=== PATIENT | male | born 1980 | race Asian ===

== ENCOUNTER → 2024-04-11 08:53 | Outpatient (REF) | payer BC, SELFPAY | LOC: RAD 08:53 | PROVIDERS: ATTENDING PHYSICIAN Physician Assistant Surgical; FAMILY PHYSICIAN Physician Assistant Medical | DX: M25.512 Pain in left shoulder (principal) | CPT/HCPCS: 76882 ==

== ENCOUNTER 2024-10-30 18:27 | Emergency (ER) | payer BC, SELFPAY ==
[2024-10-30 18:44] VITALS: BP 154/99
--- NOTE | 2024-10-30 18:44 | ED.GENMED ---
ED Provider Triage
<Santi Lopez Jr., PA-C - Last Filed: 10/30/24 18:46>
-
Patient seen by provider in Triage?: Seen in Triage
Attestation: A medical screening examination has been initiated by a qualified medical provider. Based on the assessment performed at this time, it has been determined that an emergent medical condition may exist and the patient has been informed
that further medical evaluation and possible additional diagnostic testing may be needed.
HPI: 44 M coming in for 3 days of diarrhea. Multiple episodes per day since. No fevers/blood. Very minimal urinating at this point. Concerned for dehydration. Labs/saline ordered.
GENERAL: Alert , in no apparent distress
EYE: No visual abnormalities.
NECK: Trachea midline
ENT: No visible abnormalities.
LUNGS: No acute respiratory distress
NEUROLOGICAL: Alert and oriented
SKIN: Skin intact. No visible changes.
MUSCULOSKELETAL: Moving extremities normally
PSYCH: Normal and appropriate interaction.
This is a medical evaluation conducted in person to initiate diagnostic evaluation and provide initial therapeutics. Please see further documentation by the treating clinician.
History of Present Illness
<Santi Lopez Jr., PA-C - Last Filed: 10/30/24 18:46>
General
Chief Complaint: Abdominal Symptoms
Time Seen by Provider: 10/30/24 22:07
<SAGRA Dolan - Last Filed: 10/30/24 22:41>
General
Source: patient
Nursing documentation reviewed up to this point in time: agreed with
History of Present Illness
History of Present Illness:
Pt is a 44 yo M who presents to the ED with diarrhea since Tuesday. Pt states that he went to urgent care earlier today and they advised him to go to the ED. Pt states that on Tuesday he had a headache when driving to work, became nauseous and
then the diarrhea began. Pt states that the diarrhea has been constant since it began. Pt reports that on Tuesday he had about 10-12 episodes of diarrhea. He states that diarrhea is watery. Pt reports that when he tries to eat or drink anything, he
has watery diarrhea soon afterwards. Pt reports that he is hungry and has an appetite to eat. Pt states that he tried Tums on Tuesday without relief. Pt also reports having generalized crampy abdominal pain that is present before having an episode
of diarrhea. Pt states that he has been having less amounts of urinary output since the diarrhea began. Pt denies vomiting, fever, chills, weakness, bloating, sick contacts. Pt denies recent travel or antibiotic use.
Past History
<Santi Lopez Jr., PA-C - Last Filed: 10/30/24 18:46>
Past History
ED Past Medical History: None
Social History
Personal:
Review of Systems
<SAGAR Dolan - Last Filed: 10/30/24 22:41>
Review of Systems
Allergies reviewed?: Yes
Constitutional: Reports no symptoms
Respiratory: Reports no symptoms
Cardiac: Reports no symptoms
ABD/GI: Reports abdominal pain and diarrhea
Neurological: Reports no symptoms
Phy Exam
<SAGAR Dolan - Last Filed: 10/30/24 22:41>
General Physical Exam
General Presentation: well appearing and no apparent distress
General age: appears stated age
General Skin: warm
General Habitus: normal
General Mental: alert
General Hydration: appears well hydrated
Cardiovascular Exam
Cardiovascular Exam: regular rate/rhythm
Pulmonary Exam
Pulmonary Exam: lungs clear
Gastrointestinal Exam
Gastrointestinal Exam: normal bowel sounds, non tender, soft and non distended
Course
<Santi Lopez Jr., PA-C - Last Filed: 10/30/24 18:46>
Orders/Labs/Results
Orders:
Orders
10/30/24 18:44
0.9% Sodium Chloride 1000 ml [Nss] 1,000 ml IV BOLUS
Ondansetron Injectable [Zofran] 4 mg IV NOW STA
10/30/24 18:52
Complete Blood Count/With Diff Urgent
Comprehensive Metabolic Panel Urgent
10/30/24 21:25
C difficile Antigen & Toxins Urgent
JEROD Source: Feces/Stool
Specimen Description:
Date Specimen was Collected: 10/30/24
Time Specimen was Collected: 21:10
Norovirus by PCR Urgent
JEROD Source: Feces/Stool
Specimen Description:
Date Specimen was Collected: 10/30/24
Time Specimen was Collected: 21:10
Stool Culture Urgent
JEROD Source: Feces/Stool
Specimen Description:
Date Specimen was Collected: 10/30/24
Time Specimen was Collected: 21:10
10/30/24 22:48
Urinalysis Reflex To Culture Urgent
Date Specimen was Collected: 10/30/24
Time Specimen was Collected: 22:45
10/31/24 01:10
CR Abdomen - 1 View Urgent
Comment:
Reason For Exam: abd pain, diarrhea
Abnormal Lab Results
10/30/24
18:52
Eosinophils % 10.4 H %
(0-6)
10/30/24 18:52
10/30/24 18:52
Vital Signs
Initial and Last Documented VS:
Initial Vital Signs
Temp Pulse Resp BP Pulse Ox
98.6 F 68 18 154/99 100
10/30/24 18:44 10/30/24 18:44 10/30/24 18:44 10/30/24 18:44 10/30/24 18:44
Last Documented Vital Signs
Temp Pulse Resp BP Pulse Ox
98.6 F 48 15 118/66 95
10/30/24 18:44 10/31/24 00:26 10/30/24 21:32 10/31/24 01:00 10/31/24 01:15
<Sravani Fierro [facility] - Last Filed: 10/30/24 22:41>
Orders/Labs/Results
Orders:
Orders
10/30/24 18:44
0.9% Sodium Chloride 1000 ml [Nss] 1,000 ml IV BOLUS
Ondansetron Injectable [Zofran] 4 mg IV NOW STA
10/30/24 18:52
Complete Blood Count/With Diff Urgent
Comprehensive Metabolic Panel Urgent
10/30/24 21:25
C difficile Antigen & Toxins Urgent
JEROD Source: Feces/Stool
Specimen Description:
Date Specimen was Collected: 10/30/24
Time Specimen was Collected: 21:10
Norovirus by PCR Urgent
JEROD Source: Feces/Stool
Specimen Description:
Date Specimen was Collected: 10/30/24
Time Specimen was Collected: 21:10
Stool Culture Urgent
JEROD Source: Feces/Stool
Specimen Description:
Date Specimen was Collected: 10/30/24
Time Specimen was Collected: 21:10
10/30/24 22:48
Urinalysis Reflex To Culture Urgent
Date Specimen was Collected: 10/30/24
Time Specimen was Collected: 22:45
10/31/24 01:10
CR Abdomen - 1 View Urgent
Comment:
Reason For Exam: abd pain, diarrhea
Abnormal Lab Results
10/30/24
18:52
Eosinophils % 10.4 H %
(0-6)
10/30/24 18:52
10/30/24 18:52
Vital Signs
Initial and Last Documented VS:
Initial Vital Signs
Temp Pulse Resp BP Pulse Ox
98.6 F 68 18 154/99 100
10/30/24 18:44 10/30/24 18:44 10/30/24 18:44 10/30/24 18:44 10/30/24 18:44
Last Documented Vital Signs
Temp Pulse Resp BP Pulse Ox
98.6 F 48 15 118/66 95
10/30/24 18:44 10/31/24 00:26 10/30/24 21:32 10/31/24 01:00 10/31/24 01:15
<Michael Kahn, DO - Last Filed: 10/31/24 01:57>
Orders/Labs/Results
Orders:
Orders
10/30/24 18:44
0.9% Sodium Chloride 1000 ml [Nss] 1,000 ml IV BOLUS
Ondansetron Injectable [Zofran] 4 mg IV NOW STA
10/30/24 18:52
Complete Blood Count/With Diff Urgent
Comprehensive Metabolic Panel Urgent
10/30/24 21:25
C difficile Antigen & Toxins Urgent
JEROD Source: Feces/Stool
Specimen Description:
Date Specimen was Collected: 10/30/24
Time Specimen was Collected: 21:10
Norovirus by PCR Urgent
JEROD Source: Feces/Stool
Specimen Description:
Date Specimen was Collected: 10/30/24
Time Specimen was Collected: 21:10
Stool Culture Urgent
JEROD Source: Feces/Stool
Specimen Description:
Date Specimen was Collected: 10/30/24
Time Specimen was Collected: 21:10
10/30/24 22:48
Urinalysis Reflex To Culture Urgent
Date Specimen was Collected: 10/30/24
Time Specimen was Collected: 22:45
10/31/24 01:10
CR Abdomen - 1 View Urgent
Comment:
Reason For Exam: abd pain, diarrhea
Abnormal Lab Results
10/30/24
18:52
Eosinophils % 10.4 H %
(0-6)
10/30/24 18:52
10/30/24 18:52
Vital Signs
Initial and Last Documented VS:
Initial Vital Signs
Temp Pulse Resp BP Pulse Ox
98.6 F 68 18 154/99 100
10/30/24 18:44 10/30/24 18:44 10/30/24 18:44 10/30/24 18:44 10/30/24 18:44
Last Documented Vital Signs
Temp Pulse Resp BP Pulse Ox
98.6 F 48 15 118/66 95
10/30/24 18:44 10/31/24 00:26 10/30/24 21:32 10/31/24 01:00 10/31/24 01:15
<SAGAR Dolan - Last Filed: 10/30/24 22:41>
MDM/Problems Addressed
Differential Diagnosis Includes:
Gastroenteritis, C. diff
<SAGAR Dolan - Last Filed: 10/30/24 22:41>
*Critical Care Note
Total Time (30-74mins, 75-104mins- exclusive of procedures): Not Applicable
<Michael Kahn DO - Last Filed: 10/31/24 01:57>
*Radiology
Radiology exam reviewed: all reviewed NAD by ED Provider
*Pulse Oximetry
Patient hypoxic: no
ED Attending Note
<Santi Lopez Jr., PA-C - Last Filed: 10/30/24 18:46>
-
Portions of this chart may have been created with voice recognition software.� Occasional wrong word or��sound alike� substitutions may have occurred due to the inherent limitations of voice recognition software.
<Michael Kahn DO - Last Filed: 10/31/24 01:57>
ED Attending Note
Patient seen and examined by attending physician: Yes
I performed the substantive portion of visit, reviewed & personally made and approve the management plan that is documented in note by myself or KEYONA.: Yes
ED Attending Note:
Pleasant 44-year-old male who presents with diffuse mild abdominal pain and copious diarrhea since Tuesday. He states that his symptoms have been improving. He came in because he was concerned that he has not urinated frequently enough since
Tuesday. Denies fever or chills. Reports no current nausea or vomiting though he does state he did have some nausea on Tuesday. Reports no chest pain or shortness of breath. Patient was seen in conjunction with the PA student. I have reviewed
and agree with the history and treatment plan presented. On my independent physical exam, patient is awake, alert, and oriented x3 minimal acute distress. Heart is regular rate and rhythm. Lungs are clear to auscultation bilaterally without
wheezes rales or rhonchi present abdomen soft nondistended. There is hyperactive bowel sounds. Mild tenderness to palpation in all quadrants. Negative McBurney's point tenderness. Negative Hernandez sign. No rigidity or guarding present. Skin is
warm and dry. Moves all 4 extremities.
Discharge Plan
Departure
Patient Disposition: Home (Routine Discharge)
Date of Disposition: 10/31/24
Time of Disposition: 01:57
Patient with high blood pressure during this ER visit?: No
Discharge Problem:
Diarrhea, Abdominal pain
Instructions: Diarrhea in teens and adults, Dehydration, Adult (DC), Abdominal Pain
Referrals:
Hillary Hernandez PA-C [Family Provider] -
Activity Restrictions/Additional Instructions:
It was a pleasure meeting you and taking part in your care. We hope for your continued healing and wellness.
Please read discharge instructions in their entirety. However, they are for general education and may not describe your exact diagnosis at discharge. Information on your ER visit and medical conditions were discussed with you along with appropriate
follow up information...
If indicated, please take your medications as instructed and indicated on discharge paperwork.
Please schedule a follow up appointment as directed. Call to schedule an appointment
Please return to the emergency department with ANY change in, persisting, or worsening of symptoms. If any of your symptoms do not improve, or persist, or become more severe within 6-12 hours, please return to the emergency department for further
care.
Please return to the emergency department if you develop a headache, neck pain/stiffness, fever greater than 100.4F, chest pain, shortness of breath, persistent nausea, vomiting, slurred speech, difficulty walking, numbness/tingling, weakness, signs
of infection or any other symptoms that are worrisome to you.
If you have any questions or concerns please do not hesitate to call the Hospital at or E-mail me directly at [email or web address]
Interventions
Interventions:
*Risk Screen - Suicide Last Done: 10/30/24 18:44
*General Assessment Last Done: 10/30/24 18:44
*Neglect/Abuse Screening Last Done: 10/30/24 18:44
*ED COVID-19 Vaccine History Last Done: 10/30/24 18:47
MR-[id number]-[id number] Assessment Last Done: 10/30/24 21:33
Discharge Date and Time
Print Language: SERBIAN
[2024-10-30 19:00] LABS: % Basophils 1.3 % (0-2); % Eosinophils 10.4 % (0-6); % Immature Granulocytes 0.1 % (0-0.5); % Lymphocytes 33.1 % (20.5-51.1); % Neutrophils 47.1 % (42.2-75.2); Absolute Basophils 0.1 10^3/uL (0-0.2); Absolute Eosinophils 0.7 10^3/uL (0-0.7); Absolute Lymphocytes 2.4 10^3/uL (1.2-3.4); Absolute Monocytes 0.6 10^3/uL (0.1-0.6); Absolute Neutrophils 3.4 10^3/uL (1.4-6.5); Hematocrit 50.7 % (39.0-52.0); Hemoglobin 17.2 g/dL (13.0-18.0); Mean Corp Hgb Conc. 33.9 g/dL (33.0-37.0); Mean Corpuscular Hgb 30.9 pg (27.0-31.0); Mean Corpuscular Volume 91.2 fL (80.0-94.0); Mean Platelet Volume 9.8 fL (7.4-10.4); Nucleated Red Blood Cells % 0 % (-); Platelet Count 298 10^3/uL (130-400); Red Blood Cell Count 5.56 10^6/uL (4.70-6.10); Red Cell Dist. Width 12.2 % (11.5-14.5); White Blood Cell Count 7.1 10^3/uL (4.8-10.8)
[2024-10-30 19:26] LABS: ALT (SGPT) 29 U/L (0-50); AST (SGOT) 25 U/L (17-59); Albumin 4.4 g/dl (3.5-5.0); Alkaline Phosphatase 41 U/L (38-126); Blood Urea Nitrogen 17 mg/dl (9-20); Calcium 9.1 mg/dl (8.4-10.2); Carbon Dioxide 27 mmol/L (22-30); Chloride 103 mmol/L (98-107); Glucose 98 mg/dl (70-99); Potassium 4.6 mmol/L (3.5-5.1); Sodium 141 mmol/L (135-145); Total Bilirubin 0.7 mg/dl (0.2-1.3); Total Protein 7.1 g/dl (6.3-8.2); eGFR > 60.00
[2024-10-30 21:25] VITALS: BP 119/78
[2024-10-30] MEDS: NSS 1000 IV (21:31)
[2024-10-30 21:32] VITALS: BP 119/78; BMI 29.9
[2024-10-30 22:00] VITALS: BP 129/66
[2024-10-30 22:56] LABS: Urine Albumin Negative (Neg - Trace); Urine Bilirubin Negative (Negative); Urine Character Clear (Clear); Urine Color Yellow; Urine Glucose Negative (Negative); Urine Ketone Negative (Negative); Urine Leukocyte Negative (Negative); Urine Nitrite Negative (Negative); Urine Occult Blood Negative (Negative); Urine Urobilinogen Negative (Neg - 1+)
[2024-10-30 23:00] VITALS: BP 116/73
[2024-10-31] VITALS: BP 116/76
[2024-10-31 01:00] VITALS: BP 118/66
== END 2024-10-31 02:33 | disposition home or self-care (01) ==
LOC: EMR 18:27
PROVIDERS: Physician Assistant; EMERGENCY PHYSICIAN Student in an Organized Health Care Education/Training Program; FAMILY PHYSICIAN Physician Assistant Medical
DX: R19.7 Diarrhea, unspecified (principal); R10.9 Unspecified abdominal pain; R11.0 Nausea; Z91.048 Other nonmedicinal substance allergy status
CPT/HCPCS: 99284; 96360; 51798; 74018; 80053; 81003; 85025; 87045; 87046; 87324; 87427; 87449; 87798